=== PATIENT | male | born 1965 | race Asian ===

== ENCOUNTER 2016-11-18 22:10 | Emergency (ER) | payer OTHER ==
[~2016-11-18] VITALS: Ht 182.9 cm; Wt 65.0 kg
[2016-11-18] MEDS ORDERED: ATOR40TA78 PO (22:23)
[2016-11-18] MEDS ORDERED: LOSA50TA6 PO (22:23)
[2016-11-18] MEDS ORDERED: NALOXONE 0.4 MG/ML, 1ML ONE (22:59)
[2016-11-18] MEDS ORDERED: NALOXONE 0.4 MG/ML, 1ML IVPush ONE (23:00)
[2016-11-18] MEDS ORDERED: SODIUM CHLORIDE FLUSH 10ML SYR IVF ONE (23:00)
[2016-11-18] MEDS ORDERED: SODIUM CHLORIDE 0.9% 1,000ML IVBOLUS ONE (23:00)
[2016-11-18 23:19] LABS: ASPARTATE AMINO TRANSFERASE 18 U/L (15-37); BLOOD UREA NITROGEN 9 mg/dL (7-18)
[2016-11-18 23:58] LABS: DAU SCREEN DISCLAIMER
[2016-11-19 01:00] VITALS: BP 139/80
== END 2016-11-19 01:22 | disposition home or self-care (01) ==
LOC: ED 23:59
DX: R55 Syncope and collapse (principal); R42 Dizziness and giddiness; I10 Essential (primary) hypertension; E78.00 Pure hypercholesterolemia, unspecified; Z87.891 Personal history of nicotine dependence
CPT/HCPCS: 36415; 80053; 80307; 81003; 82550; 82962; 85025; 96374; 99284; J2310; J7030